=== PATIENT | male | born 1960 | race Caucasian/White ===

== ENCOUNTER → 2020-12-29 | Outpatient (REF) ==
[~2020-12-29] MED LIST: ACET65TA OR; BABY81CH OR; HYDR25TA6 OR; LIPI10TA OR; NEXI1CAP3 OR; PRIN5TAB OR
--- NOTE | 2020-12-31 07:32 | REPPI ---
INDICATION: SHORTNESS OF BREATH COMPARISON: None. TECHNIQUE: Aguilar and bilateral lateral views of the nasal bones. FINDINGS: Nasal septum demonstrates slight leftward deviation. Nasal bones appear intact without acute fracture or dislocation. Overlying soft tissues are grossly unremarkable. IMPRESSION: No acute nasal bone fracture identified. As above <Electronically signed by Leon Mishra > 12/31/20 [id number]
--- NOTE | 2020-12-31 07:33 | REPPI ---
INDICATION: SHORTNESS OF BREATH COMPARISON: 11/24/2011 TECHNIQUE: PA and lateral. FINDINGS: The mediastinum and cardiac silhouette are normal. The lung milan are clear and without acute consolidation, effusion, or pneumothorax. The skeletal structures are intact and normal. IMPRESSION: No acute cardiopulmonary process. If the patient remains symptomatic consider chest CT for further investigation. <Electronically signed by Leon Mishra > 12/31/20 1003
== END ==
LOC: M PLAIMG 10:19
PROVIDERS: ATTEND Internal Medicine
DX: R06.02 Shortness of breath (principal)

== ENCOUNTER → 2021-01-01 | Outpatient (REF) | payer OTHER | LOC: M CARPUL 13:08 → EDSTATUS 13:30 | PROVIDERS: ATTEND Internal Medicine | DX: R01.1 Cardiac murmur, unspecified (principal) ==

== ENCOUNTER → 2021-08-03 | Outpatient (CLI) | payer OTHER | LOC: M RAD 06:32 | PROVIDERS: ATTEND Internal Medicine | DX: M54.59 Other low back pain (principal) ==